=== PATIENT | male | born 1980 | race Caucasian/White ===

== ENCOUNTER 2020-12-24 19:30 | Outpatient (CLI) | payer OTHER | END 2020-12-24 19:31 | disposition home or self-care (01) | LOC: SLEEPLAB 19:30 | PROVIDERS: ATTEND Student in an Organized Health Care Education/Training Program | DX: G47.9 Sleep disorder, unspecified (principal); G47.33 Obstructive sleep apnea (adult) (pediatric); R51.9 Headache, unspecified; R06.83 Snoring; G47.00 Insomnia, unspecified; G47.10 Hypersomnia, unspecified | CPT/HCPCS: 95810 ==